=== PATIENT | female | born 2005 | race Caucasian/White ===

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

== ENCOUNTER 2024-03-29 23:47 | Emergency (ER) | payer SELFPAY ==
[2024-03-29 23:49] VITALS: BP 168/112; PULSE 89; RESP 18; TEMP 36.3; O2SAT 100; BMI 38.9
--- NOTE | 2024-03-29 23:56 | EX.ED.GENINJ ---
HPI History of Present Illness Chief Complaint: Head Injury [facility] Medical History Cochlear implant in place Home Medications ?Medication ?Instructions ?Recorded ?Last Taken ?Type naproxen 500 mg tablet (Naprosyn) 500 mg PO BID PRN pain #20 tabs 05/05/22 Unknown Rx Allergy/AdvReac Type Severity Reaction Status Date / Time erythromycin base Allergy PT UNSURE Verified 03/29/24 23:49 OF REACTION Penicillins Allergy PT UNSURE Verified 03/29/24 23:49 OF REACTION Social History Smoking Status: Former smoker EXAM Physical Exam Const Vital Signs: 03/29/24 23:49 03/30/24 00:01 03/30/24 00:23 Temperature 97.3 F L Temperature Source Temporal Pulse Rate 89 97 Respiratory Rate 18 22 H Respiratory Effort Normal Non-Labored Respiratory Depth Normal Respiratory Pattern Normal Blood Pressure 168/112 H 158/105 H Blood Pressure Mean 130 122 Pulse Ox 100 97 Oxygen Delivery Method Room Air Room Air Room Air MDM MDM MDM Narrative Medical decision making narrative: HISTORY OF PRESENT ILLNESS: 19 old female presents with concern for head injury. She notes she hit her cochlear implant on her knee. She is worried it may be dislodged. States she was walking tried to remove snow from her and her fianc? is walking path she slipped, fell backwards and hit her head on her fianc?'s knee. She denies loss of consciousness, vomiting. Denies any focal loss of sensation, loss of vision. She denies taking blood thinners. REVIEW OF SYSTEMS: Pertinent positives: Head injury Pertinent negatives: Loss of consciousness, vomiting, focal weakness PHYSICAL EXAM: Nursing triage notes reviewed, Vital signs reviewed Primary Survey Airway: Intact Breathing: Bilateral breath sounds Circulation: Palpable bilateral femorals, Palpable bilateral radial, Palpable bilateral DP and Palpable bilateral PT Disability / Spine precautions GCS Score: Eye Openin Verbal Response: 5 Motor Response: 6 Secondary Survey Constitutional: Please see MDM Head: Atraumatic, Midface stable, NO jaw malocclusion, No Cephalohematoma, and No Lacerations noted Eye: Pupils equal round and reactive to light, Extraocular muscles intact and No periorbital ecchymosis or stepoff, no evidence of entrapment ENT: Oropharynx clear, no lacerations, no hemotympanum, no raccoon eyes or bingham sign Cervical spine / Neck: No cervical spine bony tenderness, crepitance, or stepoff deformity Trachea midline Lungs: Clear to auscultation, No asymmetric rise and No crepitus, no flail chest Cardiac: Regular rate and rhythm and No murmurs Abdomen: Soft, Nontender and No rebound Pelvis: Pelvis stable to compression : No evidence of genital injury Back: No midline bony tenderness to thoracic/lumbar/sacral spines Neuro: Alert and oriented x3, neuro exam at baseline, cranial nerves II through XII are intact. No pain with extraocular muscle movement. There is negative test of skew. 5 of 5 strength in upper and lower extremities in flexion extension. Intact sensation to light touch in upper and lower extremity dermatomes. No truncal or extremity ataxia. No dysdiadochokinesia. Normal gait. 2+ reflexes in upper and lower extremities. No meningeal signs. Negative Babinski. NIH of 0. Extremities: NO gross Deformities Psych: Normal affect Nursing triage notes reviewed, Vital signs reviewed MEDICAL DECISION MAKING: Chief Complaint: Head injury External records reviewed: Reviewed prior imaging Factors affecting care: none Social determinants of health: none History obtained from others: none Consults: none MDM Narrative: Patient was initially no acute distress. Exam without focal neurologic deficits. No sign of depressed skull fracture. I considered the following differential diagnosis: ICH, dislodged implant ALL IMAGES (IF OBTAINED) HAVE BEEN PERSONALLY REVIEWED AND INTERPRETED BY MYSELF. Patient is greater than 16, is not on blood thinners, no seizure after injury, GCS was stable , no depressed skull fracture, no evidence of basilar skull fracture, no vomiting. Age less than 65, no retrograde amnesia and mechanism is not dangerous. CT scan of the head is not indicated at this time. In fact risk of CT induced malignancy is likely higher than missed diagnosis in this case. Given the above I shared with the patient and christina? my clinical reasoning, opinion in terms of if she was having an acute life-threatening intracranial or cervical spine injury. We discussed CT induced malignancy risk versus missed diagnosis risk. I thought the patient was not having a life-threatening intracranial cervical spine injury based on her history and physical exam. I offered her CT scan of her head to prove that there was no intracranial cervical spine injury. The patient and her fianc? noted that they may want to check with the patient's father to determine next steps. At this time patient said I don't know he is being a priscilla referring to myself. After the patient said this and no longer felt our conversation was fruitful and so I remove myself from the situation given the patient disrespectful tone and offensive rhetoric. I asked the patient's nurse to communicate with the patient to determine if she would like to continue to undergo further evaluation (i.e. CT scan of the head and cervical spine). Patient choose to be discharged from the ED. The patient and/or family, caregivers express understanding. The patient and/or family, caregivers agrees with the plan. Shared decision making: I will have a discussion with the patient and or visitors regarding risk/benefits of further testing or admission. They will be made aware of of the risk/benefits inherent in this decision they will be given the opportunity to voice understanding. Total critical care time today provided was at least 0 minutes. This excludes separately billable procedures. Critical care time (if documented) is secondary to the patient having high probability of clinically significant/life threatening deterioration in the patient's condition which required my urgent intervention. Impression: 1. Head trauma 2. Closed head injury 3. History of cochlear implant Dispo: discharge home This note was generated with [employer] dictation software. It may contain incorrect words, spelling, and punctuation that were not noted in review of the chart prior to signing. Discharge Plan Triage Chief Complaint: Head Injury ED Provider: Ahsan Cueva Dx/Rx/DC Orders Instructions: ED Head Injury (Adult) Prescriptions: No Action naproxen [Naprosyn] 500 mg tablet 500 mg PO BID PRN (Reason: pain) Qty: 20 0RF Primary Care Provider: Emma Ritchie Referrals: Emma Ritchie MD [Primary Care Provider] - Activity Restrictions/Additional Instructions: Thank you for trusting us with your care today! Please take Tylenol (2 pills, 650 mg), ibuprofen (2 pills, 400 mg) every 6 hours as needed for pain and fever control. Please return to the emergency department if your symptoms change or worsen. Please follow with your primary care physician for further outpatient evaluation and management. Print Language: Cymraes Disposition Disposition: Home, Self Care
--- NOTE | 2024-03-30 00:18 | ED.RN ---
PT FAMILY MEMBER OUTSIDE OF ROOM, I NEED A REAL DOCTOR IN HERE OR SOMETHING. HE WAS RUDE THIS RN EXPLAINED DOCTOR WAS ONLY ER DOCTOR AT THIS HOSPITAL AT NIGHT. FAMILY SAID DOCTOR WAS RUDE AND ROUGH WITH ASSESSMENT. REQUESTING A NEW DOCTOR. THIS RN MADE ATTEMPT TO DISCUSS SITUATION WITH FAMILY AND PT TO FURTHER UNDERSTAND CONVERSATION BETWEEN DR AND PT. DR. KEYS MADE AWARE. VITALS RECHECKED PER PT REQUEST.
--- NOTE | 2024-03-30 00:21 | ED.RN ---
This RN was present when pts boyfriend came out of room upset asking for a real doctor and stating that Dr. Cueva was disrespectful to his girlfriend and was too aggressive when assessing her. This RN spoke with Dr. Cueva who relayed conversation he had with pt and boyfriend in which he was stating the risks and benefits of the CT scan that she is requesting. The pt had her father on speaker phone and pt said to him that the doctor was being a priscilla. Dr. Cueva stated that he chose to step away from the situation d/t her comment and allow them to decide whether they wanted the ct scan or not. This RN relayed to the pt and her boyfriend what Dr. Cueva was trying to explain and why he stepped away from the situation. Pt verbalizes understanding and admits that she said that he was being a priscilla. This RN informed pt that the choice is hers to have the CT done and that it is ordered at this time per her request. Pt decides to confer with her father via phone before making a decision.
[2024-03-30 00:23] VITALS: BP 158/105; PULSE 97; RESP 22; O2SAT 97
== END 2024-03-30 00:37 | disposition home or self-care (01) ==
LOC: ED 03-30 00:43
PROVIDERS: Emergency Provider Emergency Medicine; PCP Pediatrics; Visit Provider Emergency Medicine
DX: S09.90XA Unspecified injury of head, initial encounter (principal); W00.0XXA Fall on same level due to ice and snow, initial encounter; Z87.891 Personal history of nicotine dependence; Z96.21 Cochlear implant status; Y93.01 Activity, walking, marching and hiking

== ENCOUNTER 2024-05-01 18:25 | Emergency (ER) | payer SELFPAY ==
[2024-05-01 18:25] VITALS: BP 157/96; PULSE 103; RESP 16; TEMP 36.2; O2SAT 100; BMI 39.2
--- NOTE | 2024-05-01 19:15 | US_ITS ---
PROCEDURE: TRANSVAGINAL NON- REASON FOR EXAM: Vaginal pain TECHNIQUE: Transvaginal pelvic ultrasound COMPARISON: None. FINDINGS: Measurements: Uterus: 8.5 x 5.6 x 3.7 cm Endometrial Thickness: 15.6 mm Right Ovary: 3.8 x 2.7 x 2.8 cm with a volume of 15.2 mL. Left Ovary: 2.1 x 1.7 x 1.9 cm with a volume of 4.4 mL. Uterus: Anteverted. Normal contour and myometrial echotexture. Endometrium: Echogenic with through transmission and posterior acoustic enhancement, likely the normal secretory phase appearance. Right ovary: Normal size and echotexture. A small follicle is present measuring less than 1 cm with a somewhat echogenic minimally thickened wall, likely a corpus luteum cyst. Normal spectral Doppler arterial and venous waveforms present. Left ovary: Normal size and echotexture. A few tiny subcentimeter follicles are present. Normal spectral Doppler arterial and venous waveforms present. Other adnexal findings: None. Cul-de-sac: No free intraperitoneal fluid identified. US/Transvaginal Non- IMPRESSION: NORMAL TRANSVAGINAL PELVIC ULTRASOUND. Reading Location: [id number]
--- NOTE | 2024-05-01 19:27 | EDS_ITS ---
HPI HPI - Female History of Present Illness Chief Complaint: Female C/O Narrative Narrative: Chief complaint and HPI: Pelvic pain. 19-year-old female with past medical history of PCOS presents for evaluation of bilateral pelvic pain. Onset of symptoms yesterday and progressively worsened today. Tylenol with little relief. Patient describes her pain as intermittent and shooting towards her vagina. Pain is described as sharp and bilateral. Denies any fever, chills, nausea, vomiting, diarrhea, constipation. States she is 2 months late on her menstrual cycle but this is not uncommon for her given her PCOS. States she took a test a week ago that was negative. She endorses being sexually active. Denies any vaginal bleeding or discharge. No concern for STI. Denies any dysuria or hematuria Review of systems: See HPI Medications: As listed on the chart Allergies: As listed on the chart PFSH: Per chart Vital signs: As listed on the chart. Reviewed. Physical exam: Gen: A&O x3, NAD Head: Normocephalic, atraumatic Eyes: No sclera icterus, conjunctiva clear ENT: Moist mucous membranes Neck: Trachea midline, No JVD CV: RRR, no murmurs, no peripheral edema Resp: Lungs CTA BL, no w/r/c GI: Abd soft, non-distended, minimally tender in the bilateral lower quadrant, no r/r/g : No CVA tenderness Pelvic: Normal external genitalia. No lesions, masses, or rashes appreciated. No active vaginal bleeding or discharge noted. No drainage or bleeding noted from the cervix. Cervix is non-friable. No cervical motion tenderness appreciated. No sign of PID on examination. Musc: Full ROM, no deformity Skin: Warm, dry Neuro: Alert, oriented, grossly intact, sensation intact Psych: Cooperative, appropriate mood and affect [facility] Medical History (Updated 05/01/24 @ 21:[address] Mane Mccarthy, DO) Ovarian cyst Cochlear implant in place Home Medications ?Medication ?Instructions ?Recorded ?Last Taken ?Type NK 05/01/24 Unknown History Allergy/AdvReac Type Severity Reaction Status Date / Time erythromycin base Allergy PT UNSURE Verified 05/01/24 18:36 OF REACTION Penicillins Allergy PT UNSURE Verified 05/01/24 18:36 OF REACTION Social History Smoking Status: Light Smoker (<10/day) EXAM Physical Exam Const Vital Signs: 05/01/24 18:25 05/01/24 20:30 Temperature 97.1 F L Temperature Source Temporal Pulse Rate 103 H 105 H Respiratory Rate 16 16 Blood Pressure 157/96 H 134/81 H Blood Pressure Mean 116 98 Pulse Ox 100 100 Oxygen Delivery Method Room Air Room Air MDM MDM MDM Narrative Medical decision making narrative: 19-year-old female with past medical history of PCOS presents for evaluation of bilateral pelvic pain. Differential diagnosis includes but is not limited to symptomatic ovarian cyst, ruptured cyst, , UTI, suspect less likely ovarian torsion. Morphine, Zofran ordered for symptoms. Laboratory workup ordered including urine and transvaginal ultrasound. I do not think any CT abdomen pelvis is needed at this time. CBC with mild leukocytosis of 13.2. No anemia. CMP relatively unremarkable. No KASIE. No transaminitis. UA negative for UTI. No blood. Transvaginal ultrasound is unremarkable. No ovarian torsion. Patient does have corpus luteal cyst in the right ovary as well as follicles on the left ovary. No free fluid. On reevaluation, patient states her pain is improved. She is updated of all her results. At this point in time, no clear etiology for patient's symptoms. Motrin and Tylenol as needed for pain. Strict return precautions. Follow-up with EMERGENCY COMMUNICATIONS OPERATOR and PCP. She confirmed understanding of plan. Impression: 1. Bilateral pelvic pain, uncertain etiology 2. History of PCOS 3. Irregular menstrual cycles Lab Data Labs: Laboratory Results - last 24 hr 05/01/24 05/01/24 19:24 19:40 WBC 13.2 H RBC 4.34 Hgb 13.1 Hct 38.9 MCV 89.6 MCH 30.2 MCHC 33.7 RDW Std Deviation 41.4 RDW Coeff of Jaycee 12.6 Plt Count 440 MPV 10.0 Immature Gran % (Auto) 0.200 Neut % (Auto) 68.1 Lymph % (Auto) 19.3 [place] % (Auto) 6.2 Eos % (Auto) 5.9 H Baso % (Auto) 0.3 Absolute Neuts (auto) 9.0 H Absolute Lymphs (auto) 2.55 Nucleated RBC % 0 Sodium 139 Potassium 3.8 Chloride 109 H Carbon Dioxide 23.0 Anion Gap 7 BUN 11 Creatinine 0.70 Estim Creat Clear Calc 155.87 Est GFR (MDRD) Af Amer 138 Est GFR (MDRD) Non-Af 114 BUN/Creatinine Ratio 15.8 Glucose 86 Calcium 9.6 Total Bilirubin 0.30 AST 14 L ALT 20 Alkaline Phosphatase 86 Total Protein 8.1 Albumin 3.8 Globulin 4.3 H Albumin/Globulin Ratio 0.9 Urine Color Straw Urine Clarity Clear Urine pH 7.0 Ur Specific [place] 1.010 Urine Protein Negative Urine Glucose (UA) Normal Urine Ketones Negative Urine Occult Blood Negative Urine Nitrite Negative Urine Bilirubin Negative Urine Urobilinogen Normal Ur Leukocyte Esterase Negative Urine RBC 0 SEEN Urine WBC 0 SEEN Ur Squamous Epith Cells 0-5 SEEN Urine Bacteria 0 SEEN Urine Mucus 0 SEEN Urine Test Negative Radiography Diagnostic Testing: Clinical Impression(s) from Imaging Studies Transvaginal US 05/01/24 19:15 IMPRESSION: NORMAL TRANSVAGINAL PELVIC ULTRASOUND. Reading Location: [facility] Discharge Plan Triage Chief Complaint: Female C/O ED Provider: Mane Mccarthy Dx/Rx/DC Orders Clinical Impression: Pelvic pain Instructions: ED Pelvic Pain, Unknown Cause Prescriptions: No Action NK Primary Care Provider: Emma Ritchie Referrals: Emma Ritchie MD [Primary Care Provider] - 3-5 Days Activity Restrictions/Additional Instructions: Motrin and Tylenol as needed for pain. Follow-up with your primary care physician as well as your EMERGENCY COMMUNICATIONS OPERATOR. Return back to the ED if symptoms change or worsen. Print Language: Bulgarian Disposition Disposition: Home, Self Care Discharge Date/Time: 05/01/24 22:07
[2024-05-01] MEDS: Morphine 4 MG/ML Syringe IV (19:30)
[2024-05-01] MEDS: Ondansetron 4 MG/2 ML Vial IV (19:30)
[2024-05-01 19:47] LABS: Bacteria 0 SEEN /hpf (None Seen); Mucous, Urine 0 SEEN /hpf (<or=2+); White Blood Cells 0 SEEN /hpf (0-5)
[2024-05-01 19:56] LABS: Color, Urine Straw (Yellow); Glucose, Dipstick Normal (Normal); Ketone-Dipstick Negative (Negative); Leukocyte Esterase-Dipstick Negative /ul (Negative); Nitrite-Dipstick Negative (Negative); Occult Blood-Urine Negative /ul (Negative); Protein-Dipstick Negative (Negative); Urine Bilirubin Dipstick Negative (Negative); Urine Clarity Clear (Clear); Urine Urobilinogen Normal (Normal)
[2024-05-01 20:08] LABS: Red Blood Cells-Urine 0 SEEN /hpf (0-5); Squamous Epithelial Cells - UA 0-5 SEEN /hpf (5-10)
[2024-05-01 20:18] LABS: Absolute Lymphocyte Count 2.55 X10^3/uL (0.83-4.51); Basophil# 0.04 X10^3/uL; Basophil% 0.3 % (0-1); Eosinophil# 0.78 X10^3/uL; Eosinophils% 5.9 % (0-5); Hematocrit 38.9 % (37-47); Hemoglobin 13.1 g/dL (12.0-15.0); Lymphocyte # 2.55 X10^3/ul (0.83-4.51); Lymphocyte % 19.3 % (19-41); Mean Corp Hgb Conc 33.7 g/dL (32-36); Mean Corpuscular Hgb 30.2 pg (27.0-32.0); Mean Corpuscular Volume 89.6 fL (81-99); Monocyte# 0.82 X10^3/uL; Monocyte% 6.2 % (0-10); NRBC Flagged by Analyzer 0 % (0-5); Neutrophil # 8.96 X10^3/uL (2.7-7.7); Neutrophil % 68.1 % (47-70); Platelet Count 440 K/mm3 (150-450); RBC Distribution Width CV 12.6 % (11.6-14.6); RBC Distribution Width SD 41.4 fl (35.1-43.9); Red Blood Count 4.34 M/mm3 (4.2-5.4); White Blood Count 13.2 K/mm3 (4.4-11.0)
[2024-05-01 20:25] LABS: Internal QC Validated? YES +Cl - CLEAR BKGD; Pregnancy, Urine Negative Negative
[2024-05-01 20:28] LABS: ALB/GLOB Ratio 0.9 RATIO (0.9-2.4); AST(SGOT) 14 U/L (15-37); Alanine Aminotransfer ALT/SGPT 20 U/L (13-56); Albumin, Serum 3.8 g/dL (3.2-5.0); Alkaline Phosphatase 86 U/L (45-117); Anion Gap 7 (5-15); BUN 11 mg/dL (7-18); BUN/Creat Ratio 15.8 RATIO (10-20); Calcium,Total 9.6 mg/dL (8.5-10.1); Chloride 109 mmol/L (98-107); EST Glomerular Filtration Rate 114 mL/min (>60); Est Glom Filt Rate - Afr Amer 138 mL/min (>60); Estimated Creatinine Clearance 155.87 ml/min; Globulin 4.3 g/dL (2.2-4.2); Glucose 86 mg/dL (74-106); Potassium 3.8 mmol/L (3.5-5.1); Protein, Total 8.1 g/dL (6.4-8.2); Sodium Level 139 mmol/L (136-145)
[2024-05-01 20:30] VITALS: BP 134/81; PULSE 105; RESP 16; O2SAT 100
== END 2024-05-01 22:07 | disposition home or self-care (01) ==
PROVIDERS: Emergency Provider Surgery; PCP Pediatrics; Visit Provider Surgery
DX: R10.2 Pelvic and perineal pain (principal); N92.6 Irregular menstruation, unspecified; Z87.42 Personal history of other diseases of the female genital tract; F17.200 Nicotine dependence, unspecified, uncomplicated
CPT/HCPCS: 76830; 80053; 81001; 81025; 85025; 96374; 96375; 99284; J2405

== ENCOUNTER 2024-07-18 16:20 | Emergency (ER) | payer MEDICAID, SELFPAY ==
[2024-07-18 16:21] VITALS: BP 149/84; PULSE 102; RESP 18; TEMP 37.1; O2SAT 98; BMI 37.0
[2024-07-18 16:51] LABS: Absolute Lymphocyte Count 1.66 X10^3/uL (0.83-4.51); Absolute Neutrophil Count 9.8 X10^3/uL (2.0-7.7); Basophil# 0.04 X10^3/uL; Basophil% 0.3 % (0-1); Eosinophil# 0.09 X10^3/uL; Eosinophils% 0.7 % (0-5); Hematocrit 38.4 % (37-47); Lymphocyte # 1.66 X10^3/ul (0.83-4.51); Lymphocyte % 13.3 % (19-41); Mean Corp Hgb Conc 36.5 g/dL (32-36); Mean Corpuscular Hgb 31.3 pg (27.0-32.0); Mean Corpuscular Volume 85.9 fL (81-99); Mean Platelet Vol. 9.7 fl (6.2-12.0); Monocyte# 0.84 X10^3/uL; Monocyte% 6.7 % (0-10); NRBC Flagged by Analyzer 0 % (0-5); Neutrophil # 9.77 X10^3/uL (2.7-7.7); Neutrophil % 78.4 % (47-70); Platelet Count 416 K/mm3 (150-450); RBC Distribution Width CV 12.8 % (11.6-14.6); RBC Distribution Width SD 39.8 fl (35.1-43.9); Red Blood Count 4.47 M/mm3 (4.2-5.4); White Blood Count 12.5 K/mm3 (4.4-11.0)
[2024-07-18] MEDS: Famotidine 20 MG Tablet PO (16:52)
[2024-07-18] MEDS: Mag Hydrox/Al Hydrox/Simeth 30 ML UDC PO (16:52)
[2024-07-18] MEDS: 0.9% Normal Saline (1000mL) 1,000 ML 999 ML IV (16:52)
[2024-07-18] MEDS: Ondansetron 4 MG/2 ML Vial IV (16:52)
[2024-07-18] MEDS: Lidocaine 2% Viscous15 ML UDC 15 ML PO (16:53)
[2024-07-18 16:57] LABS: Red Blood Cells-Urine 0 SEEN /hpf (0-5)
[2024-07-18 16:59] LABS: Color, Urine Amber (Yellow); Glucose, Dipstick Normal (Normal); Leukocyte Esterase-Dipstick 25 /ul (Negative); Nitrite-Dipstick Negative (Negative); Occult Blood-Urine Negative /ul (Negative); Protein-Dipstick 30 mg/dl (Negative); Urine Clarity Sl. Cloudy (Clear); Urine Urobilinogen 4 mg/dl (Normal)
[2024-07-18 17:03] LABS: Ketone-Dipstick 150 mg/dl (Negative); Urine Bilirubin Dipstick 1 mg/dL (Negative)
--- NOTE | 2024-07-18 17:05 | EX.ED.DYSGE1 ---
HPI <PILY Chapman - Last Filed: 07/18/24 20:16> History of Present Illness Chief Complaint: Nausea/Vomiting Narrative Narrative: Patient presenting today with nausea, vomiting, and diarrhea she has had over the past 3 days. She additionally reports abdominal cramping and gastric reflux. She is currently 15 weeks , G1, P0, she follows with [facility], she has had an ultrasound to confirm intrauterine . She denies fevers, hematemesis, vaginal bleeding, and urinary symptoms. PFSH <PILY Chapman - Last Filed: 07/18/24 20:16> PFSH Medical History Ovarian cyst Cochlear implant in place Home Medications ?Medication ?Instructions ?Recorded ?Last Taken ?Type cephalexin 500 mg capsule 500 mg PO TID #20 caps 07/18/24 Unknown Rx ondansetron 4 mg disintegrating 4 mg PO Q8H PRN PRN Nausea #10 tabs 07/18/24 Unknown Rx tablet vit no.95-ferrous 1 tab PO DAILY 07/18/24 Unknown History fumarate 28 mg-folic acid 800 mcg tablet () Allergy/AdvReac Type Severity Reaction Status Date / Time erythromycin base Allergy PT UNSURE Verified 07/18/24 16:21 OF REACTION Penicillins Allergy PT UNSURE Verified 07/18/24 16:21 OF REACTION Social History Smoking Status: Former smoker ROS <PILY Chapman - Last Filed: 07/18/24 20:16> ROS ED Constitutional Constitutional ED: Denies chills or fever(s) Cardiovascular Cardiovascular: Denies chest pain Respiratory/Chest Respiratory/Chest: Denies cough or dyspnea Gastrointestinal Gastrointestinal: Reports abdominal pain, diarrhea, nausea and vomiting; Denies constipation or melena Genitourinary Genitourinary ED: Reports urinary frequency; Denies dysuria or hematuria Musculoskeletal Musculoskeletal: Denies arthralgias or myalgias Integumentary Denies rash Neurologic Neurologic: Denies weakness EXAM <PILY Chapman - Last Filed: 07/18/24 20:16> Physical Exam Const Vital Signs: 07/18/24 16:21 07/18/24 18:20 Temperature 98.8 F 97.8 F Temperature Source Oral Pulse Rate 102 H 78 Respiratory Rate 18 15 Blood Pressure 149/84 H 132/74 H Blood Pressure Mean 105 93 Pulse Ox 98 99 Oxygen Delivery Method Room Air Positive well nourished, well developed and no apparent distress General Appearance ED: well developed HEENT Reports normocephalic and head/scalp atraumatic Mouth ED: Yes moist mucous membranes normal Eyes PERRL and EOMs intact bilaterally Neck full ROM and supple Chest Wall inspection of chest normal Resp normal respiratory effort and clear to auscultation bilaterally Cardio regular rate and regular rhythm GI soft to palpation, non-tender, non-distended and no masses Back/Spine normal ROM and normal to inspection Extremity normal to inspection and full ROM Neuro moves all extremities, no focal motor deficits and no sensory deficits noted Sensorium / Orientation: awake and alert Psych mental status grossly normal and thought process normal Skin no rashes or lesions noted and no wounds <Dr. Mikey Torres DO - Last Filed: 07/18/24 20:05> Physical Exam Const Vital Signs: 07/18/24 16:21 07/18/24 18:20 Temperature 98.8 F 97.8 F Temperature Source Oral Pulse Rate 102 H 78 Respiratory Rate 18 15 Blood Pressure 149/84 H 132/74 H Blood Pressure Mean 105 93 Pulse Ox 98 99 Oxygen Delivery Method Room Air MDM <PILY Chapman - Last Filed: 07/18/24 20:16> [facility] MDM Narrative Medical decision making narrative: Patient presenting with nausea, vomiting, diarrhea, and abdominal cramping that has been ongoing over the past 3 days. She is currently 15 weeks . She is G1, P0. Labs obtained, her CBC shows a mild leukocytosis of 12.5, CMP largely unremarkable. UA does show urine protein and 150 urine ketones as well as 25 leukocytes and 3+ bacteria. She was given a dose of Keflex here and urine was cultured. Her blood pressure has been minimally elevated here and given her urine ketones I did speak with OB on-call with the [facility], they recommended adding on a urine protein to creatinine ratio. Given she does not have any elevation in her transaminases, she has no headache or blurred vision or concerns for severe preeclampsia features, they would like her to follow-up closely in the office early next week. She was given 2 L IV fluids and Zofran and on reexamination she is tolerating p.o. food and fluids. She reports significant improvement of her symptoms. I suspect she likely has a viral gastroenteritis. Bedside ultrasound was performed as the nurse was unable to hear heart tones, on ultrasound IUP seen, good cardiac activity noted on ultrasound. Patient discharged home in stable condition. Lab Data Attestation: I reviewed the patient's lab results. Labs: Laboratory Results - last 24 hr 07/18/24 07/18/24 16:40 16:50 WBC 12.5 H RBC 4.47 Hgb 14.0 Hct 38.4 MCV 85.9 MCH 31.3 MCHC 36.5 H RDW Std Deviation 39.8 RDW Coeff of Jaycee 12.8 Plt Count 416 MPV 9.7 Immature Gran % (Auto) 0.600 Neut % (Auto) 78.4 H Lymph % (Auto) 13.3 L [place] % (Auto) 6.7 Eos % (Auto) 0.7 Baso % (Auto) 0.3 Absolute Neuts (auto) 9.8 H Absolute Lymphs (auto) 1.66 Nucleated RBC % 0 Sodium 135 Potassium 3.9 Chloride 103 Carbon Dioxide 19.1 L Anion Gap 13 BUN 7 Creatinine 0.57 L Estim Creat Clear Calc 185.56 Est GFR (MDRD) Non-Af 133 BUN/Creatinine Ratio 11.7 Glucose 91 Calcium 9.9 Total Bilirubin 0.78 AST 31 ALT 34 Alkaline Phosphatase 75 Total Protein 8.2 Albumin 4.2 Globulin 4.0 Albumin/Globulin Ratio 1.1 Lipase 23 Urine Color Felecia Urine Clarity Sl. Cloudy Urine pH 6.0 Ur Specific [place] 1.020 Urine Protein 30 H Urine Glucose (UA) Normal Urine Ketones 150 A* Urine Occult Blood Negative Urine Nitrite Negative Urine Bilirubin 1 H Urine Urobilinogen 4 H Ur Leukocyte Esterase 25 H Urine RBC 0 SEEN Urine WBC 5-10 SEEN Ur Squamous Epith Cells 0-5 SEEN Ur Transition Epith Cell 0-5 SEEN Urine Bacteria 3+ Urine Mucus 1+ U Random Total Protein 22.4 H Urine Creatinine 305.00 H Protein/Creatinin Ratio 73 <Dr. Mikey Torres, DO - Last Filed: 07/18/24 20:05> [facility] Lab Data Labs: Laboratory Results - last 24 hr 07/18/24 07/18/24 16:40 16:50 WBC 12.5 H RBC 4.47 Hgb 14.0 Hct 38.4 MCV 85.9 MCH 31.3 MCHC 36.5 H RDW Std Deviation 39.8 RDW Coeff of Jaycee 12.8 Plt Count 416 MPV 9.7 Immature Gran % (Auto) 0.600 Neut % (Auto) 78.4 H Lymph % (Auto) 13.3 L [place] % (Auto) 6.7 Eos % (Auto) 0.7 Baso % (Auto) 0.3 Absolute Neuts (auto) 9.8 H Absolute Lymphs (auto) 1.66 Nucleated RBC % 0 Sodium 135 Potassium 3.9 Chloride 103 Carbon Dioxide 19.1 L Anion Gap 13 BUN 7 Creatinine 0.57 L Estim Creat Clear Calc 185.56 Est GFR (MDRD) Non-Af 133 BUN/Creatinine Ratio 11.7 Glucose 91 Calcium 9.9 Total Bilirubin 0.78 AST 31 ALT 34 Alkaline Phosphatase 75 Total Protein 8.2 Albumin 4.2 Globulin 4.0 Albumin/Globulin Ratio 1.1 Lipase 23 Urine Color Felecia Urine Clarity Sl. Cloudy Urine pH 6.0 Ur Specific [place] 1.020 Urine Protein 30 H Urine Glucose (UA) Normal Urine Ketones 150 A* Urine Occult Blood Negative Urine Nitrite Negative Urine Bilirubin 1 H Urine Urobilinogen 4 H Ur Leukocyte Esterase 25 H Urine RBC 0 SEEN Urine WBC 5-10 SEEN Ur Squamous Epith Cells 0-5 SEEN Ur Transition Epith Cell 0-5 SEEN Urine Bacteria 3+ Urine Mucus 1+ U Random Total Protein 22.4 H Urine Creatinine 305.00 H Protein/Creatinin Ratio 73 Treatment and Re-Evaluation :: I have personally performed a face to face assessment of the patient and have reviewed the EMANUEL Note. I performed a substantive portion of the visit including all aspects of the following. My hairston findings include: History: Patient presents with nausea and vomiting for the past 3 days. Patient admits to abdominal cramping. Patient also admits to some pain in her low back. Patient states nothing makes it better and nothing makes it worse. Patient is approximately 15 weeks . Patient is 1 para 0. Patient denies any hematemesis or coffee-ground emesis. Patient denies any fevers or chills. Patient denies any diarrhea. Exam: Vital signs are stable except for mildly elevated blood pressure of 149/84. Patient is afebrile. Patient is in no acute distress. Oral mucosa is pink and moist. Neck is supple. Trachea is midline. There is no JVD. Heart was regular rate and rhythm. Lungs are clear and equal bilaterally. Abdomen is soft. Bowel sounds are normal. There is mild diffuse tenderness. There is no rebound or guarding noted. Cranial nerves II through XII are intact. There are no focal motor or sensory deficits noted. Medical Decision Making: Differential diagnosis includes hyperemesis gravidarum, gastroenteritis, preeclampsia, -induced hypertension, urinary tract infection, and electrolyte abnormality. CBC will be obtained to assess for leukocytosis and anemia. Comprehensive metabolic profile will be obtained to assess for hepatic function, renal function, and electrolyte abnormality. Lipase will be obtained to assess for pancreatitis. Urinalysis will be obtained to assess for urinary tract infection and hematuria. Patient was given IV fluids. Patient was given Zofran and Pepcid. Patient was given a GI cocktail. CBC was reviewed. There is a slight leukocytosis of 12.5. The remainder is within normal limits. Comprehensive metabolic profile was reviewed and was essentially within normal limits. Urinalysis was reviewed. Urine ketones were 150. Leukocyte esterase was 25. There are 5-10 white blood cells and 3+ bacteria. Patient's blood pressure improved to 132/74. Case was discussed with GEOTHERMAL OPERATIONS ENGINEER. They recommend obtaining a protein to creatinine ratio on the urine. This was ordered. They will follow-up with the patient as an outpatient. Patient understood and was agreeable with the plan. All questions were answered. Discharge Plan Triage Chief Complaint: Nausea/Vomiting ED Midlevel Provider: Sumi Rey ED Provider: Mikey Torres Dx/Rx/DC Orders Clinical Impression: Gastroenteritis, UTI (urinary tract infection), Second trimester Instructions: Viral Gastroenteritis, Urinary Tract Infections in Women Prescriptions: New ondansetron 4 mg tablet,disintegrating 4 mg PO Q8H PRN PRN (Reason: Nausea) Qty: 10 0RF cephalexin 500 mg capsule 500 mg PO TID Qty: 20 0RF No Action PNV cmb#95-ferrous fumarate-FA [] 28 mg iron- 800 mcg tablet 1 tab PO DAILY Primary Care Provider: Emma Ritchie Referrals: Emma Ritchie MD [Primary Care Provider] - Activity Restrictions/Additional Instructions: Please call your OB on Saturday to schedule a follow-up appointment, return for any worsening symptoms. Please stay well-hydrated. Print Language: Yi Disposition Disposition: Home, Self Care Discharge Date/Time: 07/18/24 19:18
[2024-07-18 17:09] LABS: Bacteria 3+ /hpf (None Seen); Mucous, Urine 1+ /hpf (<or=2+); Squamous Epithelial Cells - UA 0-5 SEEN /hpf (5-10); Transitional Epithelial - Ur 0-5 SEEN /hpf (0-5); White Blood Cells 5-10 SEEN /hpf (0-5)
[2024-07-18 17:39] LABS: ALB/GLOB Ratio 1.1 RATIO (0.9-2.4); AST(SGOT) 31 U/L (<=31); Alanine Aminotransfer ALT/SGPT 34 U/L (<=34); Albumin, Serum 4.2 g/dL (3.5-5.0); Alkaline Phosphatase 75 U/L (35-104); Anion Gap 13 (5-15); BUN 7 mg/dL (4-19); BUN/Creat Ratio 11.7 RATIO (10-20); Calcium,Total 9.9 mg/dL (7.6-11.0); Carbon Dioxide 19.1 mmol/L (21.0-32.0); Chloride 103 mmol/L (98-108); Creatinine, Serum 0.57 mg/dL (0.70-1.20); EST Glomerular Filtration Rate 133 (>60); Estimated Creatinine Clearance 185.56 ml/min (50-250); Glucose 91 mg/dL (70-99); Lipase 23 U/L (13-75); Potassium 3.9 mmol/L (3.3-5.1); Protein, Total 8.2 g/dL (5.9-8.4); Sodium Level 135 mmol/L (133-145); Total Bilirubin 0.78 mg/dL (0.00-1.30)
[2024-07-18 18:20] VITALS: BP 132/74; PULSE 78; RESP 15; TEMP 36.6; O2SAT 99
[2024-07-18] MEDS: Cephalexin 250 MG Capsule 500 MG PO (18:42)
[2024-07-18 18:51] LABS: Protein, Urine (Random) 22.4 mg/dL (0.0-12.0); Protein:Creat Ratio 73 mg/g CRE (0-200)
== END 2024-07-18 19:18 | disposition home or self-care (01) ==
PROVIDERS: Physician Assistant; Emergency Provider Emergency Medicine; PCP Pediatrics; Visit Provider Emergency Medicine
DX: O99.612 Diseases of the digestive system complicating pregnancy, second trimester (principal); Z3A.15 15 weeks gestation of pregnancy; O23.42 Unspecified infection of urinary tract in pregnancy, second trimester; Z87.891 Personal history of nicotine dependence; K52.9 Noninfective gastroenteritis and colitis, unspecified
CPT/HCPCS: 80053; 81001; 82570; 83690; 84156; 85025; 87077; 87086; 87088; 87186; 96361; 96374; 99283; A4216; J2405

== ENCOUNTER 2024-07-20 17:40 | Emergency (ER) | payer MEDICAID, SELFPAY ==
[2024-07-20 17:41] VITALS: BP 144/87; PULSE 101; RESP 18; TEMP 36.2; O2SAT 96; BMI 37.2
--- NOTE | 2024-07-20 19:18 | US_ITS ---
PROCEDURE: RIGHT LOWER EXTREMITY VENOUS DUPLEX STUDY 07/20/2024 REASON FOR EXAM: PAIN AND SWELLING. F 19 y/o TECHNIQUE: Grayscale color flow and doppler analysis of the RIGHT lower extremity. COMPARISON: NO RELEVANT PRIOR. FINDINGS: Thrombus: No evidence of acute or chronic deep vein thrombus. Compression and augmentation: Unremarkable. Blood flow: Normal phasicity. Varicosities: Nonvisualized. Superficial veins: Unremarkable. US/Venous Duplex Imag/Limited/Uni IMPRESSION: 1. NO EVIDENCE OF ACUTE OR CHRONIC DEEP VEIN THROMBOSIS. 2. NO EVIDENCE OF SUPERFICIAL THROMBOPHLEBITIS. Reading Location: [facility]
--- NOTE | 2024-07-20 19:20 | ED.VIS.LOWEX ---
HPI History of Present Illness HPI Narrative: 19-year-old female no CeeNU past medical history. Cochlear implant. Currently 15 weeks G1, P0 Ab0. She has never had a blood clot. She had mild discomfort behind her right knee. She was sent in to be evaluated for possible DVT. She denies any injuries. No fever. No redness. No chest pain or shortness of breath. Chief Complaint: Lower Extremity Injury Informant: patient and spouse/S.O. Occured/Mechanism Mechanism/Context: No injury and No blunt trauma Onset/Context/Timing Onset: Today and Hours Context: Gradual Onset Timing: Continuous Quality of Pain: Dull Current Severity: Mild Maximum Severity: Mild Narrative Narrative: 19-year-old female 15 weeks discomfort behind her right knee. No fall injury or trauma. No fever or redness. Sent in to rule out DVT. Prior similar symptoms: No Recent Illness/Hospitalization: No PFSH PFSH Medical History Ovarian cyst Cochlear implant in place Home Medications ?Medication ?Instructions ?Recorded ?Last Taken ?Type cephalexin 500 mg capsule 500 mg PO TID #20 caps 07/18/24 Unknown Rx ondansetron 4 mg disintegrating 4 mg PO Q8H PRN PRN Nausea #10 tabs 07/18/24 Unknown Rx tablet vit no.95-ferrous 1 tab PO DAILY 07/18/24 Unknown History fumarate 28 mg-folic acid 800 mcg tablet () Allergy/AdvReac Type Severity Reaction Status Date / Time erythromycin base Allergy PT UNSURE Verified 07/20/24 17:41 OF REACTION Penicillins Allergy PT UNSURE Verified 07/20/24 17:41 OF REACTION Social History housing: apartment Smoking Status: Former smoker ROS ROS ED ROS Narrative Recent nausea vomiting diarrhea resolved. Constitutional Constitutional ED: Denies chills or fever(s) Eyes Eyes: Denies blurry vision ENT ENT ED: Denies ear pain Cardiovascular Cardiovascular: Denies chest pain Respiratory/Chest Respiratory/Chest: Denies cough or dyspnea Gastrointestinal Gastrointestinal: Reports diarrhea, nausea, vomiting and other Details: Resolved several days ago. ; Denies abdominal pain or constipation Genitourinary Genitourinary ED: Denies hematuria Musculoskeletal Musculoskeletal: Denies arthralgias Integumentary Denies abscess Neurologic Neurologic: Denies headache(s) Psychiatric Psychiatric: Denies anxiety Endocrine Endocrinology: Denies polydipsia Hematologic/Lymphatic Hematologic/Lymphatic: Denies easy bleeding, easy bruising or lymphadenopathy Allergic/Immunologic Allergic/Immunologic ED: Denies mouth swelling, tongue swelling or urticaria EXAM Physical Exam Narrative Exam Narrative: 19-year-old female no acute distress sitting upright in bed. Vital signs are stable afebrile. H EENT exam pupils round reactive light. Extra motions are intact. Neck nontender. Lungs clear equal and symmetrical. Heart regular rhythm rate about 95 no murmur. Chest wall ribs nontender. Abdomen soft nontender. Gravid nontender uterus. Moving all 4 extremities. She has full range of motion of both hips knees and ankles. There is no significant swelling or effusion in either knee. She has mild discomfort behind her right knee. Currently is not reproducible. There is no redness or warmth. The right calf is nontender. She has normal DP pulse. Normal dorsi plantarflexion. Normal sensation. There is no edema. Neurologically she is awake and alert. No focal motor deficits. Const Vital Signs: 07/20/24 17:41 Temperature 97.2 F L Temperature Source Temporal Pulse Rate 101 H Respiratory Rate 18 Blood Pressure 144/87 H Blood Pressure Mean 106 Pulse Ox 96 Oxygen Delivery Method Room Air Positive well nourished and well developed; Negative for cachectic, contractures or unkempt General Appearance ED: well developed and NAD; Negative for unkempt, cachectic or contractures Nutritional Appearance: Negative for cachectic HEENT Reports moist mucous membranes normocephalic and atraumatic Eyes PERRL Neck full ROM and supple Thyroid: Negative for tender Lymph Lymphatic: Negative for other Chest Wall inspection of chest normal and palpation of chest normal Resp normal respiratory effort, no retractions and clear to auscultation bilaterally Effort and Inspection: Negative for pain with movement Auscultation: Negative for rales, rhonchi, wheezes or diminished lung sounds Cardio regular rate, regular rhythm, S1 normal heart sound, S2 normal heart sound and no murmurs Rate: Negative for bradycardia or tachycardic Rhythm: Negative for abnormal rhythm GI non-tender, non-distended and no masses Auscultation: normoactive bowel sounds Palpation: soft; Negative for tender or guarding Back/Spine no CVA tenderness General Back: Negative for CVA tenderness or swelling Cervical Spine: Negative for cervical spine tenderness Thoracic Spine / Upper Back: Negative for thoracic spinal tenderness Lumbar Spine / Lower Back: Negative for lumbar spinal tenderness Extremity normal to inspection and full ROM General Extremety ED: Negative for cyanosis or edema General Extremity: Negative for cyanosis or edema Neuro oriented x3 and CN's II-XII intact bilaterally Sensorium / Orientation: alert, oriented to person, oriented to place and oriented to time; Negative for orientation impaired, confused or lethargic Motor Exam: strength 5/5 throughout Psych mental status grossly normal Appearance: Negative for unkempt Skin no wounds Lesions: no lesions Rashes: no rashes MDM MDM MDM Narrative Medical decision making narrative: 19-year-old female 15 weeks complain discomfort behind her right knee. Exam benign. Rule out DVT. Ultrasound to be obtained. There is no signs of infection. No history of trauma. No need for x-ray. Right knee has full range of motion. No effusion. No cellulitis. No septic joint. Repeat exam at 8:36 PM unchanged. Leg exam normal. No change in color. I have discussed with the patient and significant other that the ultrasound of her legs showed no DVT. I called her with her being discharged to home. Tylenol for pain. Outpatient follow-up as needed. She has full flexion extension of her right hip knee and ankle there is no swelling or redness or discoloration. She has normal strength and sensation in her foot and normal DP pulse. History & Record Review Discussion w/independent historian: Patient Additional record(s) reviewed:: Prior inpatient record, Prior outpatient record, Prior ED visit and Prior labs Radiography Diagnostic Testing: Clinical Impression(s) from Imaging Studies Venous Duplex 07/20/24 19:18 IMPRESSION: 1. NO EVIDENCE OF ACUTE OR CHRONIC DEEP VEIN THROMBOSIS. 2. NO EVIDENCE OF SUPERFICIAL THROMBOPHLEBITIS. Reading Location: [facility] Discharge Plan Triage Chief Complaint: Lower Extremity Injury ED Provider: Gabo Vines Dx/Rx/DC Orders Clinical Impression: Acute leg pain, Second trimester Prescriptions: No Action PNV cmb#95-ferrous fumarate-FA [] 28 mg iron- 800 mcg tablet 1 tab PO DAILY ondansetron 4 mg tablet,disintegrating 4 mg PO Q8H PRN PRN (Reason: Nausea) Qty: 10 0RF cephalexin 500 mg capsule 500 mg PO TID Qty: 20 0RF Primary Care Provider: Emma Ritchie Referrals: Emma Ritchie MD [Primary Care Provider] - As Needed Activity Restrictions/Additional Instructions: No blood clot. Tylenol for any pain. Follow-up with your doctor if not improving. Either your STEREOPLOTTER OPERATOR or your primary care provider. Print Language: German Disposition Disposition: Home, Self Care
--- NOTE | 2024-07-20 20:47 | ED.RN ---
This RN went to discharge the patient, however the room was empty. The patient was not in the room, the US stated she saw a patient in a red shirt leaving. This RN is unsure if there was an IV established, there was nothing charted and the primary RN is occupied with another patient. This RN notified the HRO to check the cameras.
== END 2024-07-20 20:46 | disposition home or self-care (01) ==
PROVIDERS: Emergency Provider Emergency Medicine; PCP Pediatrics; Visit Provider Emergency Medicine
DX: O99.891 Other specified diseases and conditions complicating pregnancy (principal); Z3A.15 15 weeks gestation of pregnancy; Z87.891 Personal history of nicotine dependence; M79.604 Pain in right leg
CPT/HCPCS: 93971; 99282

== ENCOUNTER 2024-10-12 19:17 | Outpatient (CLI) | payer MEDICAID, SELFPAY ==
[2024-10-12 19:18] VITALS: BP 124/78; PULSE 80; RESP 18; TEMP 36.5; O2SAT 100
--- NOTE | 2024-10-12 19:47 | EDS_ITS ---
HPI History of Present Illness Chief Complaint: Lower Extremity Injury Informant: patient Narrative Narrative: G1, P0 27-week gestation presents mechanical fall left foot injury however reports injury to her abdomen. Running in the rain she slipped injuring her f oot stating her knee went into her abdomen. No head injuries. No abdominal cramping. No vaginal bleeding. Tetanus unknown. Denies alcohol tobacco or illicit drug use. She is followed by Dr. Kingsley. Tetanus Immunization: Unknown PFSH PFSH Medical History Ovarian cyst Cochlear implant in place Home Medications ?Medication ?Instructions ?Recorded ?Last Taken ?Type cephalexin 500 mg capsule 500 mg PO TID #20 caps 07/18 Unknown Rx ondansetron 4 mg disintegrating 4 mg PO Q8H PRN PRN Na usea #10 tabs 07/18/24 Unknown Rx tablet vit no.95-ferrous 1 tab PO DAILY 07/18/24 Unk nown History fumarate 28 mg-folic acid 800 mcg tablet () Allergy/AdvReac Type Severity Reaction Status Date / Time erythromycin base Allergy PT UNSURE Verified 10/12/24 19:23 OF REACTION Penicillins Allergy PT UNSURE Verified 10/12/24 19:23 OF REACTION Social History housing: apartment Smoking Status: Former smoker ROS ROS ED Constitutional Constitutional ED: Denies fever(s) Cardiovascular Cardiovascular: Denies chest pain Respiratory/Chest Respiratory/Chest: Denies cough Gastrointestinal Gastrointestinal: Denies diarrhea or vomiting Musculoskeletal Musculoskeletal: Reports other Details: Left foot pain Integumentary Reports Abrasions and wounds; Denies rash Neurologic Neurologic: Denies weakness EXAM Physical Exam Const Vital Signs: 10/12/24 19:18 10/12/24 21:09 10/12/24 21:35 Temperature 97.7 F L 97.7 F L Temperature Source Oral Pulse Rate 80 80 99 Respiratory Rate 18 18 Blood Pressure 124/78 H 124/78 H Blood Pressure Mean 93 93 BP Systolic BP Diastolic Pulse Ox 100 100 Oxygen Delivery Method Room Air 10/12/24 21:35 10/12/24 21:35 10/12/24 21:35 Temperature Temperature Source Temporal Pulse Rate Respiratory Rate 16 Blood Pressure Blood Pressure Mean BP Systolic BP Diastolic Pulse Ox 97 Oxygen Delivery Method 10/12/24 21:35 10/12/24 21:36 10/12/24 21:36 Temperature 98.9 F Temperature Source Pulse Rate 85 Respiratory Rate Blood Pressure 138/90 H Blood Pressure Mean BP Systolic 138 BP Diastolic 90 Pulse Ox Oxygen Delivery Method 10/12/24 22:11 10/12/24 22:11 10/12/24 23:02 Temperature Temperature Source Pulse Rate 75 Respiratory Rate Blood Pressure 141/79 H 134/81 H Blood Pressure Mean BP Systolic 141 134 BP Diastolic 79 81 Pulse Ox Oxygen Delivery Method 10/12/24 23:02 Temperature Temperature Source Pulse Rate 83 Respiratory Rate Blood Pressure Blood Pressure Mean BP Systolic BP Diastolic Pulse Ox Oxygen Delivery Method Positive well nourished and well developed Constitutional Narrative: GCS 15. General Appearance ED: well developed HEENT normocephalic and atraumatic Eyes General Eye ED: Yes normal appearance of both eyes Neck full ROM Resp normal respiratory effort and normal air movement Cardio regular rate and regular rhythm GI soft to palpation GI Narrative: Gravid abdomen nontender. Extremity normal to inspection Extremity Narrative: Left lower extremity no knee or ankle tenderness. Tender dorsal foot with slight ecchymosis laterally. There is abrasion lateral to the fifth digit with no active bleeding. No deformities. Neuro oriented x3 Skin Skin Narrative: See above MDM MDM MDM Narrative Medical decision making narrative: Interventions / MDM: Differential diagnosis: Left foot fracture, left toe abrasion, 27 weeks gestation, blunt abdominal injury Diagnosis considered but do not suspect: N/A My EKG interpretation: N/A Imaging independently reviewed and interpreted by myself: 3 view left foot: Proximal fifth base fracture External documents reviewed: N/A Test considered but not ordered:N/A ED course: Mechanical fall left foot injury and pain. However she is 27 weeks states the knee went into her abdomen. No current cramping no vaginal bleeding. She does not know her blood type. heart tones, Rh will be ordered as there is none in the system. She does not know her blood type. Tylenol. Tetanus updated. X-ray left foot ordered. 2044: Left foot x-ray proximal fifth base fracture. Walking boot ordered. Nurs ing will clean and dress the abrasion on the left fifth toe. Bedside ultrasound with heart tones 142 positive movement. No obvious placenta injury. Started have some cramping left side under the rib. Nursing to draw for Rh and to collect urine. 2047: I spoke with Dr. Casiano who is aware patient in triage. [facility] send [facility] to [facility] for [facility]. They will follow-up on the Rh in urine there. Re-evaluation: stable Disposition discussed with patient/family/significant other: Patient and mother Case discussed with consulting clinician: OB This note was generated with [employer] dictation software. It may contain incorrect words, spelling, and punctuation that were not noted in checking the note before signing. Lab Data Labs: Laboratory Results - last 24 hr 10/12/24 10/12/24 20:50 22:15 Urine Color Yellow Urine Clarity Clear Urine pH 7.0 Ur Specific [place] 1.010 Urine Protein Negative Urine Glucose (UA) Normal Urine Ketones Negative Urine Occult Blood Negative Urine Nitrite Negative Urine Bilirubin Negative Urine Urobilinogen Normal Ur Leukocyte Esterase 25 H Urine RBC 0-5 SEEN Urine WBC 0-5 SEEN Ur Squamous Epith Cells 0-5 SEEN Urine Bacteria 0 SEEN Urine Mucus 0 SEEN Blood Type O POSITIVE Radiography Diagnostic Testing: Clinical Impression(s) from Imaging Studies Foot X-Ray 10/12/24 19:50 IMPRESSION: Acute nondisplaced pseudo-Reyes avulsion fracture of the 5th metatarsal base. Reading Location: [facility] Discharge Plan Triage Chief Complaint: Lower Extremity Injury ED Provider: Julio Moore Dx/Rx/DC Orders Clinical Impression: Foot fracture, left, Abrasion of fifth toe, left, Tetanus toxoid vaccination administered at current visit, Blunt injury of abdomen, 27 weeks gestation of Primary Care Provider: Emma Ritchie Disposition Disposition: Home, Self Care Discharge Date/Time: 10/12/24 21:10
--- NOTE | 2024-10-12 19:50 | RAD_ITS ---
PROCEDURE: LEFT FOOT MIN 3 VIEWS 10/12/2024 REASON FOR EXAM: INJURY TECHNIQUE: LEFT FOOT MIN 3 VIEWS COMPARISON: None. FINDINGS: There is an acute appearing nondisplaced transverse fracture at the 5th metatarsal base, compatible with a pseudo-Reyes avulsion type fracture. No additional acute fracture or dislocation is seen. Alignment is anatomic. Corticated density at the tip of the distal fibula is likely chronic/degenerative versus a developmental unfused ossicle (os subfibulare). Mild soft tissue swelling at the lateral midfoot. RAD/Foot min 3 Views IMPRESSION: Acute nondisplaced pseudo-Reyes avulsion fracture of the 5th metatarsal base. Reading Location: [id number]
[2024-10-12 21:09] VITALS: BP 124/78; PULSE 80; RESP 18; TEMP 36.5; O2SAT 100
[2024-10-12 21:35] VITALS: PULSE 99; RESP 16; TEMP 37.2; O2SAT 97
[2024-10-12 21:36] VITALS: BP 138/90; PULSE 85
[2024-10-12 22:04] VITALS: BMI 36.0
[2024-10-12 22:11] VITALS: BP 141/79; PULSE 75
--- NOTE | 2024-10-12 22:23 | OB.TRI.NOTE ---
HPI - General General Date of Admission: 10/12/24 Date of Service: 10/12/24 Chief Complaint: fall HPI Narrative JAQUELIN WATTS, is a 19 F who presents after falling in the rain. Broken left foot. Seen and treated in ED. RH negative. No bleeding. Mild cramping. Maternal Data Information Final MARIA ESTHER: 01/09/25 Gestational age: 27+3 PFSH PFSH Medical History Ovarian cyst Cochlear implant in place Home Medications ?Medication ?Instructions ?Recorded ?Last Taken ?Type cephalexin 500 mg capsule 500 mg PO TID #20 caps 07/18/24 Unknown Rx ondansetron 4 mg disintegrating 4 mg PO Q8H PRN PRN Nausea #10 tabs 07/18/24 Unknown Rx tablet vit no.95-ferrous 1 tab PO DAILY 07/18/24 Unknown History fumarate 28 mg-folic acid 800 mcg tablet () Allergy/AdvReac Type Severity Reaction Status Date / Time erythromycin base Allergy PT UNSURE Verified 10/12/24 19:23 OF REACTION Penicillins Allergy PT UNSURE Verified 10/12/24 19:23 OF REACTION Social History housing: apartment Smoking Status: Former smoker History 1 Elective abortions Hx Para 0 Spontaneous abortions Hx # Term Pregnancies Ectopic pregnancies Hx # Pregnancies Multiple births # of living children NST FHR Rate Baby A Baseline: 150 Variability:: Moderate Accelerations:: 10 x 10 Decelerations:: None NST Reactive:: Appropriate for gestational age Uterine Activity:: quiet Assessment & Plan (1) Foot fracture, left: (2) Blunt injury of abdomen: (3) 27 weeks gestation of : PLAN: Plan Discharge home with precautions. Has appointment next week in office S/p TDAP today
[2024-10-12 22:27] LABS: Mucous, Urine 0 SEEN /hpf (<or=2+)
[2024-10-12 22:44] LABS: Color, Urine Yellow (Yellow); Glucose, Dipstick Normal (Normal); Ketone-Dipstick Negative (Negative); Leukocyte Esterase-Dipstick 25 /ul (Negative); Nitrite-Dipstick Negative (Negative); Occult Blood-Urine Negative /ul (Negative); Protein-Dipstick Negative (Negative); Specific Gravity, Urine 1.010 (1.002-1.030); Urine Bilirubin Dipstick Negative (Negative)
[2024-10-12 23:02] VITALS: BP 134/81; PULSE 83
[2024-10-12 23:23] LABS: Red Blood Cells-Urine 0-5 SEEN /hpf (0-5); Squamous Epithelial Cells - UA 0-5 SEEN /hpf (5-10)
== END 2024-10-12 23:15 | disposition home or self-care (01) ==
LOC: ED 20:51 → WPOUT 21:22 → WP 21:22
PROVIDERS: Emergency Provider Emergency Medicine; PCP Pediatrics; Visit Provider Obstetrics & Gynecology
DX: O9A.212 Injury, poisoning and certain other consequences of external causes complicating pregnancy, second trimester (principal); W18.30XA Fall on same level, unspecified, initial encounter; Z87.891 Personal history of nicotine dependence; S92.902A Unspecified fracture of left foot, initial encounter for closed fracture; Z3A.27 27 weeks gestation of pregnancy
CPT/HCPCS: 59025; 59050; 73630; 81001; 86900; 86901; 90715; 99221; 99283; G0378

== ENCOUNTER 2024-12-08 14:15 | Outpatient (CLI) | payer MEDICAID, SELFPAY ==
[2024-12-08] VITALS (12 sets, daily range): BP systolic 121–152; BP diastolic 67–99; PULSE 77–104; RESP 18; TEMP 36.6; O2SAT 98–99; BMI 37.5
[2024-12-08 15:14] LABS: ROM Internal Control Test YES-OK TO RESULT pt. (Internal QC); ROM Patient Test Negative (Negative); Record Kit Lot#, ROM+ K3358
[2024-12-08 16:19] LABS: Hematocrit 32.0 % (37-47); Hemoglobin 11.1 g/dL (12.0-15.0); Mean Corp Hgb Conc 34.7 g/dL (32-36); Mean Corpuscular Volume 89.6 fL (81-99); Mean Platelet Vol. 10.8 fl (6.2-12.0); Platelet Count 344 K/mm3 (150-450); RBC Distribution Width CV 12.9 % (11.6-14.6); RBC Distribution Width SD 42.0 fl (35.1-43.9); Red Blood Count 3.57 M/mm3 (4.2-5.4); White Blood Count 13.0 K/mm3 (4.4-11.0)
[2024-12-08 16:36] LABS: Creatinine, Urine (random) 39.80 mg/dL (28.00-217.00); Protein, Urine (Random) 6.6 mg/dL (0.0-12.0); Protein:Creat Ratio 165 mg/g CRE (0-200)
--- NOTE | 2024-12-08 16:37 | OB.TRI.NOTE ---
HPI - General General Date of Service: 12/08/24 HPI Narrative JAQUELIN WATTS, is a 19 F who presents from office for possible LOF. Maternal Data Information MARIA ESTHER Calculator Estimated Delivery Date Method Current WG Current Estimate 01/09/25 Manual 35w 3d PFSH PFSH Medical History Ovarian cyst Cochlear implant in place Home Medications Medication Instructions Recorded Last Taken Type ondansetron 4 mg disintegrating 4 mg PO Q8H PRN PRN Nausea #10 tabs 07/18/24 12/08/24 Rx tablet vit no.95-ferrous 1 tab PO DAILY 07/18/24 12/08/24 History fumarate 28 mg-folic acid 800 mcg tablet () aspirin 81 mg tablet,delayed 81 mg PO DAILY 12/08/24 12/08/24 History release Allergy/AdvReac Type Severity Reaction Status Date / Time erythromycin base Allergy Anaphylaxis Verified 12/08/24 14:58 Penicillins Allergy PT UNSURE Verified 12/08/24 14:58 OF REACTION Social History housing: apartment Smoking Status: Former smoker History 1 Elective abortions Hx Para 0 Spontaneous abortions Hx # Term Pregnancies Ectopic pregnancies Hx # Pregnancies Multiple births # of living children NST FHR Rate Baby A Baseline: 130 Variability:: Moderate Accelerations:: 15 x 15 Decelerations:: None Uterine Activity:: quiet Assessment & Plan (1) Threatened premature labor: QUALIFIERS: Trimester: third trimester Qualified Code(s): O47.03 - False labor before 37 completed weeks of gestation, third trimester (2) Elevated blood pressure complicating in third trimester, antepartum: PLAN: Plan Reactive NST PreE labs collected for mildly elevated BPs
[2024-12-08 16:53] LABS: AST(SGOT) 15 U/L (<=31); Alanine Aminotransfer ALT/SGPT 12 U/L (<=34); Estimated Creatinine Clearance 241.99 ml/min (50-250); Uric Acid 4.9 mg/dL (2.6-6.0)
[2024-12-08 17:32] LABS: Group B Strep DNA By PCR Negative (Negative)
== END 2024-12-08 17:05 | disposition home or self-care (01) ==
LOC: WPOUT 14:27 → WP 14:28
PROVIDERS: PCP Pediatrics; Referring Provider Obstetrics & Gynecology; Visit Provider Obstetrics & Gynecology
DX: O47.1 False labor at or after 37 completed weeks of gestation (principal); Z87.891 Personal history of nicotine dependence; Z3A.37 37 weeks gestation of pregnancy; O99.891 Other specified diseases and conditions complicating pregnancy; R03.0 Elevated blood-pressure reading, without diagnosis of hypertension
CPT/HCPCS: 36415; 59025; 59050; 82565; 82570; 84112; 84156; 84450; 84460; 84550; 85027; 87077; 87081; 87186; 87653; 99221; G0378

== ENCOUNTER 2025-01-12 15:25 | Inpatient (IN) | payer MEDICAID, SELFPAY ==
[2025-01-12] VITALS (13 sets, daily range): BP systolic 124–178; BP diastolic 62–100; PULSE 78–124; RESP 14–16; TEMP 36.3–37; O2SAT 98–99; BMI 39.2
[2025-01-12 16:47] LABS: Hematocrit 31.4 % (37-47); Hemoglobin 10.5 g/dL (12.0-15.0); Immature Granulocytes Count 0.080 X10^3/uL (0.0-0.0); Mean Corp Hgb Conc 33.4 g/dL (32-36); Mean Corpuscular Volume 89.5 fL (81-99); Mean Platelet Vol. 11.6 fl (6.2-12.0); NRBC Flagged by Analyzer 0 % (0-5); Platelet Count 359 K/mm3 (150-450); RBC Distribution Width CV 13.4 % (11.6-14.6); RBC Distribution Width SD 43.2 fl (35.1-43.9); Red Blood Count 3.51 M/mm3 (4.2-5.4); White Blood Count 12.3 K/mm3 (4.4-11.0)
[2025-01-12 17:08] LABS: Creatinine, Urine (random) 79.90 mg/dL (28.00-217.00); Protein, Urine (Random) 14.0 mg/dL (0.0-12.0); Protein:Creat Ratio 175 mg/g CRE (0-200)
[2025-01-12 17:11] LABS: AST(SGOT) 18 U/L (<=31); Alanine Aminotransfer ALT/SGPT 10 U/L (<=34); Estimated Creatinine Clearance 213.94 ml/min (50-250); Syphilis Antibodies Nonreactive (Nonreactive); Uric Acid 5.2 mg/dL (2.6-6.0)
--- NOTE | 2025-01-12 20:19 | PCM.HP.OB ---
HPI - General General Date of Admission: 01/12/25 Date of Service: 01/12/25 Chief Complaint: decel in office HPI Narrative ANA WATTS, is a 19 F who presents 1 para 0 who had some tachycardia with what appeared to be decelerations in the office. She was sent immediately to labor and delivery. She denies any regular contractions. She denies any vaginal bleeding or leaking of fluid. She denies headache or visual changes. She has had good movement. Maternal Data Information MARIA ESTHER Calculator Estimated Delivery Date Method Current WG Current Estimate 01/09/25 Manual 40w 3d Final MARIA ESTHER: 01/09/25 Gestational age: 40 3/7 PFSH PFSH Medical History (Updated 01/12/25 @ 20:[address] Chiara Miller MD) Family history of hearing loss at age younger than 7 years Depression Anxiety Ovarian cyst Cochlear implant in place Home Medications ?Medication ?Instructions ?Recorded ?Last Taken ?Type ondansetron 4 mg disintegrating 4 mg PO Q8H PRN PRN Nausea #10 tabs 07/18/24 12/08/24 Rx tablet vit no.95-ferrous 1 tab PO DAILY 07/18/24 12/08/24 History fumarate 28 mg-folic acid 800 mcg tablet () aspirin 81 mg tablet,delayed 81 mg PO DAILY 12/08/24 12/08/24 History release Allergy/AdvReac Type Severity Reaction Status Date / Time erythromycin base Allergy Anaphylaxis Verified 12/08/24 14:58 Penicillins Allergy PT UNSURE Verified 12/08/24 14:58 OF REACTION Surgical History (Updated 01/12/25 @ 17:36 by Linda Leong) History of surgery Social History housing: apartment Smoking Status: Current every day smoker tobacco type: e-cigarettes History 1 Elective abortions Hx Para 0 Spontaneous abortions Hx # Term Pregnancies Ectopic pregnancies Hx # Pregnancies Multiple births # of living children NST FHR Rate Baby A Baseline: 140 Variability:: Moderate Accelerations:: 15 x 15 Decelerations:: None NST Reactive:: Yes Uterine Activity:: Mild contractions every 1- 3 minutes ROS Constitutional Constitutional: Denies fatigue, fever(s) or malaise Eyes Eyes: Denies change in vision ENT HEENT: Denies dizziness or headache(s) Cardiovascular Cardiovascular: Denies chest pain, dyspnea or lightheadedness Respiratory/Chest Respiratory/Chest: Denies cough or dyspnea Gastrointestinal Gastrointestinal: Denies change in bowel habits Genitourinary Genitourinary: Denies burning urination or genital lesions Integumentary Integumentary: Denies rash Neurologic Neurologic: Denies confusion, dizziness, headache(s), numbness or weakness Vital Signs Vital Signs Vital Signs: 01/12/25 15:35 01/12/25 15:35 01/12/25 15:35 Temperature Temperature Source Temporal Pulse Rate 104 H Respiratory Rate Blood Pressure 148/87 H BP Systolic 148 BP Diastolic 87 Pulse Ox 01/12/25 15:35 01/12/25 15:35 01/12/25 15:51 Temperature 97.4 F L Temperature Source Pulse Rate Respiratory Rate 16 Blood Pressure 149/86 H BP Systolic 149 BP Diastolic 86 Pulse Ox 01/12/25 15:51 01/12/25 16:06 01/12/25 16:06 Temperature Temperature Source Pulse Rate 110 H 93 Respiratory Rate Blood Pressure 157/86 H BP Systolic 157 BP Diastolic 86 Pulse Ox 01/12/25 16:21 01/12/25 16:21 01/12/25 17:13 Temperature Temperature Source Pulse Rate 111 H Respiratory Rate Blood Pressure 162/81 H 124/73 H BP Systolic 162 124 BP Diastolic 81 73 Pulse Ox 01/12/25 17:13 01/12/25 17:13 01/12/25 17:13 Temperature Temperature Source Temporal Pulse Rate 87 Respiratory Rate 16 Blood Pressure BP Systolic BP Diastolic Pulse Ox 01/12/25 17:13 01/12/25 17:13 01/12/25 17:16 Temperature 97.3 F L Temperature Source Pulse Rate 101 H Respiratory Rate Blood Pressure BP Systolic BP Diastolic Pulse Ox 98 01/12/25 17:16 01/12/25 19:12 01/12/25 19:12 Temperature Temperature Source Pulse Rate 109 H Respiratory Rate Blood Pressure BP Systolic BP Diastolic Pulse Ox 98 99 01/12/25 19:17 01/12/25 19:17 01/12/25 19:24 Temperature Temperature Source Pulse Rate 98 124 H Respiratory Rate Blood Pressure BP Systolic BP Diastolic Pulse Ox 99 01/12/25 19:24 01/12/25 19:33 01/12/25 19:33 Temperature Temperature Source Temporal Pulse Rate Respiratory Rate 14 Blood Pressure BP Systolic BP Diastolic Pulse Ox 98 01/12/25 19:33 01/12/25 19:36 01/12/25 19:36 Temperature 98.6 F Temperature Source Pulse Rate 93 Respiratory Rate Blood Pressure 178/100 H BP Systolic 178 BP Diastolic 100 Pulse Ox 01/12/25 19:54 01/12/25 19:54 Temperature Temperature Source Pulse Rate 88 Respiratory Rate Blood Pressure 144/87 H BP Systolic 144 BP Diastolic 87 Pulse Ox Weight Weight: 107.048 kg Body Mass Index (BMI) 39.2 Physical Exam Const alert and no apparent distress General Appearance: cooperative HEENT normocephalic Resp normal respiratory effort Cardio regular rate GI soft to palpation GI Narrative: gravid, nontender, appropriate for gestational age Extremity no calf tenderness General Extremity: edema Skin no wounds Rashes: No rashes noted Psych activity/motor behavior normal Labs Labs Labs: Blood Type O POSITIVE Antibody Screen NEGATIVE Hct, (37-47) 31.4 % L Hgb, (12.0-15.0) 10.5 g/dL L Syphilis Total Ab, (Nonreactive) Nonreactive Group B Strep DNA, (Negative) Negative Assessment & Plan (1) Elevated blood pressure complicating in third trimester, antepartum: PLAN: Risk-benefit and alternatives to induction of labor were discussed with patient her questions were answered to her satisfaction she desires to proceed. She had elevated blood pressure today without evidence of preeclampsia. Preeclampsia labs are normal. Patient was somewhat anxious when she arrived after arrival blood pressure came down. Will monitor closely for signs and symptoms of preeclampsia. Estimated weight is less than 4500 g and pelvis clinically adequate to expect vaginal delivery. Sherman placed over stylette through the internal cervical os in the usual sterile fashion inflated to 30 cc. Placement over internal cervical os was confirmed. Patient fetus tolerated the procedure well. Initiate Pitocin and titrate as needed. May have routine pain control measures as needed (2) 40 weeks gestation of :
[2025-01-12] MEDS: 0.9% Normal Saline Single 100 ML IV.SOLN. INTRA-UTER (20:21)
[2025-01-12] MEDS: Lactated Ringers 1,000 ML 200 ML IV (23:00)
[2025-01-12] MEDS: Oxytocin 15 Units/NS 250ml 15 UNITS/250 ML IV.SOLN 2 UNITS IV (23:23)
[2025-01-13] VITALS (62 sets, daily range): BP systolic 107–152; BP diastolic 52–99; PULSE 66–152; RESP 14–24; TEMP 36.1–36.9; O2SAT 82–100
[2025-01-13] MEDS: Lactated Ringers 1,000 ML 999 ML IV (03:15)
[2025-01-13] MEDS: fentaNYL-bupivacaine (epidural) 100 ML BAG EPIDURAL ×3 (04:08→13:21)
[2025-01-13] MEDS: Lactated Ringers 1,000 ML 200 ML IV ×2 (06:13→11:45)
[2025-01-13] MEDS: LACTATED RINGERS 500 ML 999 ML IV (08:02)
--- NOTE | 2025-01-13 08:55 | PCM.PN.OB ---
Subjective Subjective 5-6 cm and thinning. IUPC and FSE just placed. Starting amnio infusion for variables. Pitocin turned off. Objective Data Objective Data Vital Signs: Vital Signs Temp Pulse Resp BP Pulse Ox 97.9 F 86 16 110/64 100 01/13/25 08:30 01/13/25 08:30 01/13/25 08:30 01/13/25 08:30 01/13/25 07:20 Weight: 107.048 kg Body Mass Index (BMI) 39.2 Intake & Output: Intake and Output for Last 24 Hours 01/11/25 01/12/25 01/13/25 23:59 23:59 23:59 Intake Total 2423.72 / 2423.72 Output Total 200 / 200 Balance 2223.72 / 2223.72 Lab / Micro Data 01/12/25 16:30 01/12/25 16:25 Labs: Laboratory Results - last 24 hr 01/12/25 16:25: Creatinine 0.51 L, Estim Creat Clear Calc 213.94, Est GFR (MDRD) Non-Af 137, Uric Acid 5.2, AST 18, ALT 10, U Random Total Protein 14.0 H, Urine Creatinine 79.90, Protein/Creatinin Ratio 175, Syphilis Total Ab Nonreactive 01/12/25 16:30: WBC 12.3 H, RBC 3.51 L, Hgb 10.5 L, Hct 31.4 L, MCV 89.5, MCH 29.9, MCHC 33.4, RDW Std Deviation 43.2, RDW Coeff of Jaycee 13.4, Plt Count 359, MPV 11.6, Immature Gran % (Auto) 0.600, Neut % (Auto) 75.9 H, Lymph % (Auto) 14.4 L, Daniels % (Auto) 7.1, Eos % (Auto) 1.6, Baso % (Auto) 0.4, Absolute Neuts (auto) 9.3 H, Absolute Lymphs (auto) 1.78, Nucleated RBC % 0, Blood Type O POSITIVE, Antibody Screen NEGATIVE NST FHR Rate Baby A Baseline: 130 Variability:: Moderate Accelerations:: 15 x 15 Decelerations:: Variable FHR Category:: Category II Uterine Activity:: 3 Assessment & Plan (1) 40 weeks gestation of : (2) Variable heart rate decelerations, antepartum: PLAN: Plan Amnioinfusion Pitocin break Epidural in
[2025-01-13] MEDS: Amnioinfusion- 0.9% NS 1,000 ML IV.SOLN. 1000 ML INTRA-UTER (09:19)
--- NOTE | 2025-01-13 14:02 | PCM.PN.OB ---
Subjective Subjective Persistent cat 2 with prolonged decels. Not corrected with position changes and amnio infusion. 9 cm but high station. Discussed with pt need for . For HR decelerations. Epidural in place and working. Objective Data Objective Data Vital Signs: Vital Signs Temp Pulse Resp BP Pulse Ox 98.2 F 93 16 115/77 100 01/13/25 13:44 01/13/25 13:44 01/13/25 13:44 01/13/25 13:44 01/13/25 13:42 Weight: 107.048 kg Body Mass Index (BMI) 39.2 Intake & Output: Intake and Output for Last 24 Hours 01/11/25 01/12/25 01/13/25 23:59 23:59 23:59 Intake Total 2957.75 / 2957.75 Output Total 1300 / 1300 Balance 1657.75 / 1657.75 Lab / Micro Data 01/12/25 16:30 01/12/25 16:25 Labs: Laboratory Results - last 24 hr 01/12/25 16:25: Creatinine 0.51 L, Estim Creat Clear Calc 213.94, Est GFR (MDRD) Non-Af 137, Uric Acid 5.2, AST 18, ALT 10, U Random Total Protein 14.0 H, Urine Creatinine 79.90, Protein/Creatinin Ratio 175, Syphilis Total Ab Nonreactive 01/12/25 16:30: WBC 12.3 H, RBC 3.51 L, Hgb 10.5 L, Hct 31.4 L, MCV 89.5, MCH 29.9, MCHC 33.4, RDW Std Deviation 43.2, RDW Coeff of Jaycee 13.4, Plt Count 359, MPV 11.6, Immature Gran % (Auto) 0.600, Neut % (Auto) 75.9 H, Lymph % (Auto) 14.4 L, [place] % (Auto) 7.1, Eos % (Auto) 1.6, Baso % (Auto) 0.4, Absolute Neuts (auto) 9.3 H, Absolute Lymphs (auto) 1.78, Nucleated RBC % 0, Blood Type O POSITIVE, Antibody Screen NEGATIVE Assessment & Plan (1) Variable heart rate decelerations, antepartum: (2) Non-reassuring heart tones complicating , antepartum: PLAN:
[2025-01-13] MEDS: Lidocaine 2% (5ml sdv) 5 ML VIAL.MPF 15 ML EPIDURAL (14:19)
[2025-01-13] MEDS: morphine PF (epidural) 5 MG/10 ML Vial 3 MG EPIDURAL (14:30)
[2025-01-13] MEDS: morphine PF (epidural) 5 MG/10 ML Vial 2 MG IV (14:32)
[2025-01-13] MEDS: fentaNYL 100 MCG/2 ML Ampul IV (14:48)
--- NOTE | 2025-01-13 14:50 | EX.PCM.OBRPT ---
Assessment & Plan (1) Non-reassuring heart tones complicating , antepartum: (2) S/P : Maternal Data Information MARIA ESTHER Calculator Estimated Delivery Date Method Current WG Current Estimate 01/09/25 Manual 40w 4d Final MARIA ESTHER: 01/09/25 Gestational age: 40+4 Operative Report (OB) Procedure Details Date of Procedure: 01/13/25 Procedure Start Time: 14:19 Procedure Stop Time: 14:50 Time of Delivery: 14:22 Pre-Operative Diagnosis: Nonreassuring Status Post-Operative Diagnosis: Same as Pre-operative diagnosis Classification: DWIGHT Type of Anesthesia: Epidural Antibiotic Given: Clindamycin 600mg IV x1 and Gentamicin 1.5mg/kg IV x1 Drain: Sherman to straight drain Estimated Blood Loss: 800 Findings Description of surgery: Patient taken to the OR with epidural and Sherman in place. Vaginal prep was performed. Epidural was dosed for . She was prepped and draped in the normal sterile fashion. A Pfannenstiel incision was made and carried down to the underlying fascia. The fascia was incised in the midline and extended laterally. The fascia was dissected from the muscle. The muscles divided in the midline. The peritoneum was entered bluntly and extended manually. A bladder blade was placed. A bladder flap was created. A low transverse incision was made and extended bluntly. The head was elevated to the incision. The shoulders delivered easily. There was a cord around the shoulder x 1. The infant cried upon delivery. The cord was cut and clamped. The placenta was delivered with marylu traction. The uterus was exteriorized and cleared of all clot and debris. The incision was repaired with 1-0 Vicryl x 2. The uterus was returned the abdomen, The gutter cleared of all clots. The peritoneum was closed with 2-0 Monocryl. The fascia was closed with 1-0 Vicryl. The subcutaneous tissue was reapproximated with 2-0 Monocryl The skin was closed with 4-0. I performed the major parts of the procedure with the RFNA assisting with retraction and closing the skin. The sponge lap and needle count was correct x 2 Surgical findings: cord around shoulder Presentation: Vertex and NISA Amniotic Membrane Rupture Type: Artificial Amniotic Fluid Description: Clear Placental Delivery Description: Spontaneous Placenta Disposition: [facility] Specimen collected: No Cord Vessel Description: 3 Vessels Cord Entanglement: Other (over right shoulder) Nuchal Cord Compression: With compression Infant A gender: Female (1 minute): 8 (5 minute): 9 Delayed Cord Clamping: No Seed Buyer vp genetic: Yes Chief Investigator: Lily Shin Tasks completed by ophthalmic surgical assistant: Opening, Closing and Retracting Additional dietary assistant?: No Complications Complications: No
[2025-01-13] MEDS: Gentamicin 800 MG/20 ML Vial 300 MG IV (14:51)
[2025-01-13] MEDS: Oxytocin 15 Units/NS 250ml 15 UNITS/250 ML IV.SOLN 83 UNITS IV (15:10)
[2025-01-13] MEDS: Ketorolac 30 MG/ML Syringe IV ×2 (15:30→21:39)
[2025-01-13] MEDS: Lactated Ringers 1,000 ML 100 ML IV (18:11)
[2025-01-14] VITALS (7 sets, daily range): BP systolic 106–148; BP diastolic 63–91; PULSE 89–105; RESP 14–18; TEMP 36.3–36.7; O2SAT 97–100
[2025-01-14] MEDS: Ketorolac 30 MG/ML Syringe IV ×2 (03:15→09:27)
[2025-01-14] MEDS: 0.9% Saline Lock 10 ML Syringe IV ×3 (03:15→09:26)
[2025-01-14 05:25] LABS: Hematocrit 23.2 % (37-47); Hemoglobin 7.7 g/dL (12.0-15.0); Mean Corp Hgb Conc 33.2 g/dL (32-36); Mean Corpuscular Volume 90.6 fL (81-99); Mean Platelet Vol. 10.6 fl (6.2-12.0); Platelet Count 280 K/mm3 (150-450); RBC Distribution Width CV 13.7 % (11.6-14.6); RBC Distribution Width SD 44.7 fl (35.1-43.9); Red Blood Count 2.56 M/mm3 (4.2-5.4); White Blood Count 14.6 K/mm3 (4.4-11.0)
--- NOTE | 2025-01-14 06:59 | PCM.PN.OB ---
Subjective Subjective Doing well. Ambulating and voiding without difficulty. Mild lochia. Breast feeding. Hgb 7.7 this am. Asymptomatic. Accepting of IV iron. Hematoma noted under incision last evening but improved Objective Data Objective Data Vital Signs: Vital Signs Temp Pulse Resp BP Pulse Ox O2 Del Method 98.1 F 92 14 106/63 98 Room Air 01/14/25 05:06 01/14/25 05:06 01/14/25 05:06 01/14/25 03:20 01/14/25 05:06 01/14/25 05:06 Oxygen Delivery Method Room Air Weight: 107.048 kg Body Mass Index (BMI) 39.2 Intake & Output: Intake and Output for Last 24 Hours 01/12/25 01/13/25 01/14/25 23:59 23:59 23:59 Intake Total 4912.22 / 4912.22 586.67 / 586.67 Output Total 2820 / 2820 Balance 2092.22 / 2092.22 586.67 / 586.67 Lab / Micro Data 01/14/25 05:18 01/12/25 16:25 Labs: Laboratory Results - last 24 hr 01/14/25 05:18: WBC 14.6 H, RBC 2.56 L, Hgb 7.7 L, Hct 23.2 L, MCV 90.6, MCH 30.1, MCHC 33.2, RDW Std Deviation 44.7 H, RDW Coeff of Jaycee 13.7, Plt Count 280, MPV 10.6 ROS Constitutional Constitutional: Denies headache(s) Cardiovascular Cardiovascular: Denies chest pain or dyspnea Gastrointestinal Gastrointestinal: Denies nausea or vomiting Genitourinary Genitourinary: Denies dysuria Physical Exam Const alert General Appearance: cooperative Eyes PERRL and EOMs intact bilaterally Resp normal respiratory effort GI soft to palpation and non-tender GI Narrative: soft, moderate distention, fundus firm, appropriately tender. Abdominal bandage dry and intact. Two quarter sized areas of blood that have no enlarged. Uterus Palpation: uterus fundus firm ( below umbilicus) Extremity normal to inspection and full ROM Neuro oriented x3 and CN's II-XII intact bilaterally Psych mental status grossly normal Assessment & Plan (1) S/P : (2) Postoperative anemia: PLAN: IV iron (3) Elevated blood pressure complicating in third trimester, antepartum: PLAN: Plan Routine
[2025-01-14] MEDS: Senna/Docusate Sodium 1 Tablet PO (08:37)
[2025-01-14] MEDS: Iron Sucrose Complex 200 MG in 0.9% Normal Saline (100mL Bag) 100 ML 220 MG IV (08:37)
--- NOTE | 2025-01-14 19:59 | NURSING ---
C Plotts CNM on unit and aware of BP
[2025-01-14] MEDS: NIFEdipine 30 MG Tablet PO (21:08)
[2025-01-15 01:20] VITALS: BP 147/87; PULSE 102; RESP 14; TEMP 36.9; O2SAT 99
[2025-01-15 09:40] VITALS: BP 133/82; PULSE 103; RESP 18; TEMP 36.8; O2SAT 99
[2025-01-15] MEDS: Senna/Docusate Sodium 1 Tablet PO (09:41)
[2025-01-15] MEDS: NIFEdipine 30 MG Tablet PO (09:41)
[2025-01-15] MEDS: 0.9% Saline Lock 10 ML Syringe IV ×2 (09:42→12:44)
--- NOTE | 2025-01-15 09:57 | PCM.PN.BLA ---
Progress Note Pain was well controlled, increased today RLQ robbin. No N/V. Tolerating regular diet. AMbulating without difficulty. Denies Rodriguez or visual chagnes Physical Exam Narrative incision bandage w 2 blood spots approx 3 cm. No palpable abnormalties under incision. Const alert General Appearance: cooperative GI GI Narrative: soft, moderate distention, fundus firm, appropriately tender. Abdominal bandage clean dry and intact Assessment & Plan Assessment/Plan (1) S/P : PLAN: working on . (2) Gestational hypertension: PLAN: started on procardia last night. Has BP monitor at home. Will continue to monitor for now (3) Acute blood loss anemia: PLAN: suspect she has intraperitoneal or rectus fascial hematoma. Recheck CBC today to ensure it is stable. She is tolerating anemia well. Consider IV fe
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
[2025-01-15 12:53] LABS: Hematocrit 26.0 % (37-47); Hemoglobin 8.8 g/dL (12.0-15.0); Mean Corp Hgb Conc 33.8 g/dL (32-36); Mean Corpuscular Volume 91.2 fL (81-99); Mean Platelet Vol. 10.6 fl (6.2-12.0); Platelet Count 363 K/mm3 (150-450); RBC Distribution Width CV 14.2 % (11.6-14.6); RBC Distribution Width SD 46.5 fl (35.1-43.9); Red Blood Count 2.85 M/mm3 (4.2-5.4); White Blood Count 12.1 K/mm3 (4.4-11.0)
[2025-01-15 14:30] VITALS: BP 132/82; PULSE 109; RESP 16; TEMP 36.3; O2SAT 100
[2025-01-15 15:30] VITALS: BP 149/93
--- NOTE | 2025-01-19 14:48 | NURSING ---
F/up call attempted, no ans, LVM
== END 2025-01-15 18:30 | disposition left against medical advice (07) | DRG 540 ==
PROVIDERS: Obstetrics & Gynecology; Admitting Provider Obstetrics & Gynecology; PCP Pediatrics; Referring Provider Obstetrics & Gynecology; Visit Provider Obstetrics & Gynecology
DX: O76 Abnormality in fetal heart rate and rhythm complicating labor and delivery (principal); D62 Acute posthemorrhagic anemia; O13.4 Gestational [pregnancy-induced] hypertension without significant proteinuria, complicating childbirth; O90.81 Anemia of the puerperium; Z37.0 Single live birth; O69.2XX0 Labor and delivery complicated by other cord entanglement, with compression, not applicable or unspecified; Z3A.40 40 weeks gestation of pregnancy; Z87.891 Personal history of nicotine dependence; Z53.29 Procedure and treatment not carried out because of patient's decision for other reasons
CPT/HCPCS: 59025; 59050; 82565; 82570; 84156; 84450; 84460; 84550; 85025; 85027; 86780; 86850; 86900; 86901; 99221; J1756; A4216; G0378; J2405